=== PATIENT | female | born 2000 | race Caucasian/White ===

== ENCOUNTER 2020-10-28 17:52 | Observation (INO) | payer OTHER ==
[~2020-10-28] VITALS: Ht 162.6 cm; Wt 66.1 kg
[2020-10-28] MEDS ORDERED: ZYRTEC10 M2 PO (18:32)
[2020-10-28 21:43] LABS: Influenza A, PCR Negative (NEGATIVE); Influenza B, PCR Negative (NEGATIVE); Resp Syncytial Virus, PCR Negative (NEGATIVE); SARS-Cov-2 (COVID-19) PCR, MMC Negative (NEGATIVE)
--- NOTE | 2020-10-29 06:07 | NUR ---
SHIFT SUMMARY NEW ADMIT THIS SHIFT. AAOX4. NPO. DISCOMFORT AT TOLERABLE LEVEL SINCE ARRIVAL TO FLOOR. DENIES NAUSEA/EMESIS. PT ORIENTED TO ROOM + CALL LIGHT USE, UP TO USE RESTROOM SBA TO ASSIST WITH LINES. PT EDUCATED REGARDING TX + QUESTIONS ANSWERED. SURGICAL PACKET ON FRONT OF CHART, COVID SWAB COMPLETED. PT RESTED WELL T/O NIGHT + CALLS FOR ASSISTANCE. CURRENTLY RESTING WITH CALL LIGHT IN REACH.
--- NOTE | 2020-10-29 08:51 | NUR ---
PT TO DAY SURGERY AT THIS TIME.
[2020-10-29] MEDS ORDERED: HYDR1TAB94 PO (16:06)
--- NOTE | 2020-10-29 16:14 | NUR ---
PT REPORTS FLATUS.
--- NOTE | 2020-10-29 17:33 | NUR ---
DISCHARGE PT EDUCATED ON AND RECEIVED PRINTED DISCHARGE INSTRUCTIONS AND VERBALIZED AN UNDERSTANDING. HARD RX FOR NORCO GIVEN TO PT. IV DC'D. PT EATING DINNER AND WAITING FOR RIDE HOME TO GET HERE. PT PACKED PERSONAL BELONGINGS.
== END 2020-10-29 17:53 | disposition home or self-care (01) ==
LOC: ER 17:52 → SURS 17:53
PROVIDERS: Physician Assistant; ADMIT Surgery
DX: K35.80 Unspecified acute appendicitis (principal); Z20.828 Contact with and (suspected) exposure to other viral communicable diseases; Z23 Encounter for immunization; Z79.899 Other long term (current) drug therapy
CPT/HCPCS: 0241U; 81025; 96361; 96365; 96376; 99284-25; A9270-GY; G0378; J1100; J1885; J2250; J2405; J2543; J2704; J2710; J3010; J7030; J7120

== ENCOUNTER → 2020-10-28 | Outpatient (CLI) | payer OTHER ==
[~2020-10-28] MED LIST: HYDR1TAB94 PO; ZYRTEC10 M2 PO
[2020-10-28 17:19] LABS: BASOPHILS ABSOLUTE AUTO 0.02 K/mm3 (0.00-0.23); BASOPHILS PERCENT AUTO 0 % (0-2); EOSINOPHILS ABSOLUTE AUTO 0.01 K/mm3 (0.00-0.68); EOSINOPHILS PERCENT AUTO 0 % (0-6); Hematocrit 45.1 % (33.0-51.0); Hemoglobin 14.7 g/dL (11.5-16.0); IMMATURE GRAN ABSOLUTE AUTO 0.04 K/mm3 (0.00-0.10); IMMATURE GRAN PERCENT AUTO 0 % (0-1); LYMPHOCYTES ABSOLUTE AUTO 0.71 K/mm3 (0.84-5.20); LYMPHOCYTES PERCENT AUTO 5 % (21-46); MONOCYTES PERCENT AUTO 6 % (4-13); Mean Corpuscular HGB 28.3 pg (26.0-34.0); Mean Corpuscular HGB Conc 32.6 g/dL (31.5-36.5); Mean Corpuscular Volume 87 fL (80-100); Mean Platelet Volume 11.2 fL (9.1-12.4); NEUTROPHILS ABSOLUTE AUTO 13.97 K/mm3 (1.96-9.15); NEUTROPHILS PERCENT AUTO 89 % (41-73); Platelet Count 261 K/mm3 (150-400); RDW Coefficient Variation 11.8 % (11.7-14.2); RDW Standard Deviation 37.9 fL (35.1-46.3); Red Blood Cell Count 5.19 M/mm3 (3.80-5.20); White Blood Cell Count 15.65 K/mm3 (4.00-11.30)
[2020-10-28 17:38] LABS: Alanine Aminotransfer (ALT/SGP 18 U/L (12-78); Albumin, Blood 4.4 g/dL (3.4-5.0); Albumin/Globulin Ratio 1.2 (0.8-1.8); Alk Phos 55 U/L (50-136); Anion Gap 8 mmol/L (6-16); Aspartate Aminotrans (AST/SGOT 20 U/L (12-37); Bilirubin, Total 0.7 mg/dL (0.1-1.0); Blood Urea Nitrogen 8 mg/dL (8-24); Bun/Creatinine Ratio 12.4 (12.0-20.0); CO2, Blood 27 mmol/L (21-32); Calcium, Blood 9.7 mg/dL (8.5-10.1); Chloride, Blood 101 mmol/L (98-108); Creatinine, Blood 0.64 mg/dL (0.40-1.00); Globulin, Blood 3.8 g/dL (2.2-4.0); Glomerular Filtration Rate >60 (60-); Glucose, Blood 117 mg/dL (70-99); Potassium, Blood 3.5 mmol/L (3.5-5.5); Sodium, Blood 136 mmol/L (136-145); Total Protein, Blood 8.2 g/dL (6.4-8.2)
== END | disposition home or self-care (01) ==
LOC: PLD 16:30 → LAB SHORT 16:30
PROVIDERS: Nurse Practitioner Family
DX: R10.9 Unspecified abdominal pain (principal)
CPT/HCPCS: 80053; 85025